=== PATIENT | female | born 1960 | race Caucasian/White ===

== ENCOUNTER 2025-10-02 14:05 | Outpatient (CLI) | payer MEDICARE, MEDICAID, SELFPAY ==
--- NOTE | ~2025-10-02 | CT_ITS ---
EXAM/PROCEDURE: CT soft tissue neck w con HISTORY: E04.2 - Nontoxic multinodular goiter COMPARISON: None available. TECHNIQUE: Contrast-enhanced soft tissue neck CT FINDINGS: The left lobe of the thyroid is markedly enlarged measuring 7.5 x 5.5 x 5.0 cm in the cephalocaudal by transverse by AP dimensions. The trachea is displaced to the right approximately 1.8 cm. The mass extends caudally just past the thoracic inlet into the superiormost portion of the anterior mediastinum. The right lobe of the thyroid has small subcentimeter hypoattenuating nodules but is normal in size. The remainder the visualized portions of the mediastinum chest appear normal. No gross acute process seen. Contrast. Vascular structures are patent. No bulky lymphadenopathy seen. Scattered nonpathologic sized jugulodigastric posterior triangle and submental lymph nodes are present. Complete opacification of the left maxillary sinus with extension of soft tissue attenuation through the left ostiomeatal complex into the medial ethmoid air cells. Diffuse degenerative changes throughout the cervical spine and upper thoracic spine. There is also prominent kyphotic angulation at T2-T3 with approximately 2 mm spondylolisthesis anteriorly of T2 on T3. IMPRESSION: 1. The left lobe of the thyroid measures 7.5 x 5.5 x 5.0 cm, significantly enlarged and displacing the trachea approximately 1.8 cm to the right of midline. 2. Complete opacification of the left maxillary sinus with soft tissue borderline expansile and appearance and protruding through the area of the left ostium medial complex. Correlate with dedicated paranasal sinus CT. 3. Kyphotic angulation at the T2-3 interspace with slight anterolisthesis of T2 on T3. Reviewed, dictated and finalized at location A. CTOR DATABASE IMPRESSION: 1. The left lobe of the thyroid measures 7.5 x 5.5 x 5.0 cm, significantly enla rged and displacing the trachea approximately 1.8 cm to the right of midline. 2. Complete opacification of the left maxillary sinus with soft tissue borderli ne expansile and appearance and protruding through the area of the left ostium medial complex. Correlate with dedicated paranasal sinus CT. 3. Kyphotic angulation at the T2-3 interspace with slight anterolisthesis of T2 on T3.
[2025-10-02 14:37] LABS: Estimated Glomerular Filt Rate > 60
--- OUTSIDE RECORDS SUMMARY | 2025-10-02 21:27 | XMS_ITS ---
Author Organization Unknown Address [address] [place], [place] [id number] Phone Care Team Providers Care Check And Transfer Beader Name Role Phone LACI DUTTA Attending Unavailable LEIDA Beyer Primary Unavailable Social History Type Status Start Date End Date Code Code Syst em Sex Female Hospital Discharge Instructions Should you have any questions prior to discharge, please contact a member of your healthcare team. If you have left the hospital and have any questions, please contact your primary care physician. Reason For Referral No Data Found Plan of Treatment No Data Found Encounters Encounter Diagnosis Start Date Code Code Sys tem Prosthetic heart valve in situ 07/17/2025 [id number] SNOMED-CT Personal Care Team Section Performer Name Performer Role Active Date Inactive Da IFTIKHAR Parks PCP - Primary care physician 2025-05
--- OUTSIDE RECORDS SUMMARY | 2025-10-02 21:27 | XMS_ITS | Clinical Summary ---
Author Organization [facility] Address [address] [place] [address] Care Team Providers Care Buffing Machine Operator Semiautomatic Name Role Phone Clif Bobby M.D. Unavailable [phone] Lito Jimenez M.D. Unavailable [phone] Dariel Leung M.D. Unavailable Unavailable Lynette Karimi M.D. Unavailable [phone] Melva Bates A.P.N. Unavailable [phone] Donnell Perez M.D. Unavailable [phone] Ceasar Caruso M.D. Unavailable [phone] Danni Rodas Unavailable Unavailable Raphael Andrews M.D. Unavailable [phone] Jameson Fisher Primary Care Provider [phone] Jason Garcia M.D. Unavailable [phone] Ronit Mccray Unavailable [phone] Allergies Active Allergy Reactions Criticality Noted Date Comments Bee Venom Hives 01/31/2025 Penicillins Patient does not recall 01/22/2025 Told something happened as a baby Medications insulin aspart (NOVOLOG FLEXPEN) 100 unit/mL insulin pen Inject 5 units under the skin three times daily with meals. 5 Active insulin glargine-yfgn 100 unit/mL insulin vial Inject 14 units under the skin every night at bedtime. 5 Active glucose 4 gram chew tablet Chew 4-8 tablets every hour as needed for hypoglycemia (low blood sugar). 5 Active dextrose 50% soln 50 mL by Intravenous route every hour as needed for other (Blood glucose less than 70 and patient is NPO or not alert). 5 Active ferrous sulfate 325 mg (65 mg iron) tab Take 1 tablet by mouth every other day. Active acetaminophen (TYLENOL) 325 mg tablet Take 2 tablets by mouth every 4 hours as needed for fever or mild pain. Acetaminophen max dose 4 grams per 24 hours. 5 Active insulin lispro (HUMALOG) 100 unit/mL injection Inject 1-2 units under the skin at bedtime as needed for other (Elevated Glucose). 5 Active insulin lispro (HUMALOG) 100 unit/mL injection Inject 1-6 units under the skin three times daily with meals. Active ticagrelor (Brilinta) 90 mg tablet Take 1 tablet by mouth twice daily. Active multivitamin + minerals no iron (adult) 0.4-250 mg-mcg tab tablet Take 1 tablet by mouth daily. Active nicotine (NICODERM) 14 mg/24 hr patch Apply 1 patch to the skin every 24 hours. Active pantoprazole (PROTONIX) 40 mg tablet Take 1 tablet by mouth twice daily. Best if taken before breakfast. Active polyethylene glycol 3350 (MIRALAX) 17 gram oral packet Take 1 packet by mouth daily. Dissolve in 8 ounces of water. 5 Active sennosides-doc usate sodium (TERESA-COLACE) 8.6-50 mg tab Take 2 tablets by mouth twice daily. 5 Active amiodarone (CORDARONE) 200 mg tablet Take 1 tablet by mouth daily. 90 tablet Active atorvastatin (LIPITOR) 80 mg tablet Take 1 tablet by mouth daily. 90 tablet Active losartan (Cozaar) 50 mg tablet Take 1 tablet by mouth daily. 90 tablet Active Active Problems Problem Noted Date Diagnosed Date GIB (gastrointestinal bleeding) 02/17/2025 Severe anemia 01/31/2025 History of left common carotid artery stent plac ement 01/25/2025 Asymptomatic carotid artery stenosis without infarction, right 01/22/2025 Stroke due to stenosis of left carotid artery Social History Tobacco Use Types Packs/Day Years Used Date Smoking Tobacco: Former Cigarettes Smokeless Tobacco: Former Tobacco Cessation:Counseling Given: Not Answered PHQ-2 Answer Date Recorded PHQ-2 Score 0 04/17/2025 Comments Unknown Sex and Gender Information Value Date Recorded Sex Assigned at Female 02/20/2025 2:21 PM CDT Legal Sex Female 4:18 PM CDT Gender Identity Female 02/20/2025 2:21 PM CDT Sexual Orientation Don't know 02/20/2025 2: 21 PM CDT Last Filed Vital Signs Vital Sign Reading Time Taken Comments Blood Pressure 135/61 03/11/2025 3:39 PM CDT Pulse 76 03/11/2025 3:39 PM CDT Temperature 36.6 C (97.9 F) 03/11/2025 3:39 PM CDT Respiratory Rate 19 03/11/2025 3:39 PM CDT Oxygen Saturation 95% 03/11/2025 3:39 PM CDT Inhaled Oxygen Concentration - - Weight 62.1 kg (136 lb 12.8 oz) 04/17/2025 3:49 PM CDT Height 163.8 cm (5' 4.5) 04/17/2025 3:49 PM CDT Body Mass Index 23.12 04/17/2025 3:49 PM CDT Plan of Treatment Upcoming Encounters Date Type Department Care Team (Late st Contact Info) Description 04/16/2026 3:00 PM CDT Appointment [facility] [address] [place] [address] Melva Bates A.P.NMinor [address] [facility] [address] [place] [phone] 04/16/2026 4:00 PM CDT Office Visit [facility] [address] [place] [address] Lito Jimenez M.D. [address] [place] [address] Health Maintenance Due Date Last Done Comments CT Colonography 1959 FIT Test 1959 FIT-DNA Test 1959 FLEXIBLE SIGMOIDOSCOPY 1959 HEPATITIS C SCREENING 1959 MEDICARE ANNUAL WELLNESS VISIT ELIGIBLE 1959 TDAP/TD VACCINE (1 - Tdap) 1970 Pneumococcal Vaccine: 50+ Ye ars (1 of 2 - PCV) 1978 Adult RSV VACCINE (1 - Risk 50-74 years 1-dose series) 2009 LUNG CANCER SCREENING 2009 ZOSTER SERIES VACCINE (1 of 2) 2009 BREAST CANCER SCREENING 10/14/2014 OSTEOPOROSIS SCREENING 10/14/2014 COVID-19 VACCINE (1 - season) 2025 INFLUENZA VACCINE (#1) 2025 DEPRESSION SCREENING 04/17/2026 04/17/2025 COLONOSCOPY 02/05/2035 02/05/2025, 02/05/2025 COLORECTAL CANCER SCREENING 02/05/2035 Medical Devices Implanted Type Area Aging Department Supervisor Device Identifier Shelf Expiration Date Model / Serial / Lot Stent Enroute 9x40mm Peripheral-Tr anscarotid Strl - [id number] Implanted:Qty : 1 on 03/01/2025 by Ceasar Caruso M.D. at [address] BILIARY STENT Right: Common Carotid Artery [facility] 08/13/2026 [id number] / NA / [id number] Insurance MEDICARE [place] Advance Directives * Full Code (Latest Code Status on File) Date Activated Date Inactivated Comments 02/17/2025 8:49 PM 03/11/2025 10:08 PM Care Teams Buffing Machine Operator Semiautomatic Relationship Specialty Start Date [facility] [address] [place] [address] PCP - General Internal Medicine 03/11/25 Jason Garcia M.D. [address] [facility] [address] [address] PCP - Cardiology Cardiology:Electro-Phys iology 03/11/25 Clif Bobby M.D. [address] [place] [address]/[address] [place] [address] Referring Provider Cardiology 02/17/25 Lito Jimenez M.D. [address] [facility]/ [address] [place] [phone] Referring Provider Cardiology 02/18/25 Dariel Leung M.D. [address] [place] [address] Referring Provider 02/18/25 Lynette Karimi M.D. [address] [place] [address] [place] [phone] Referring Provider Cardiology 02/19/25 Melva Bates A.P.N. [address] [place] [phone] Referring Provider Cardiology 02/19/25 Donnell Perez M.D. [address] [place] [address] [place] [phone] Referring Provider Cardiology 02/25/25 Ceasar Caruso M.D. [address] [place] [address] [address] [place] [address] Referring Provider Vascular Surgery 03/01/25 Danni Rodas P.A. Referring Provider Vascular Surgery 03/01/25 Raphael Andrews M.D. [address] [place] [phone] Referring Provider Cardiology 03/08/25 Ronit Mccray [address] [place] [phone] Referring Provider 6/4/25
--- OUTSIDE RECORDS SUMMARY | 2025-10-02 21:27 | XMS_ITS | Clinical Summary ---
Author Organization [facility] Address [address] [facility] [place] [address] Care Team Providers Care Serger Name Role Phone Unavailable Primary Care Provider Unavailabl e Allergies Active Allergy Reactions Criticality Noted Date Comments Penicillins Unknown 01/22/2025 Told something happened as a baby Medications apixaban (ELIQUIS) 5 mg tablet Take 5 mg by mouth 2 times daily. 5 Active aspirin (ECOTRIN EC) 81 mg Tablet, Delayed Release (E.C.) Take 81 mg by mouth daily. Active atorvastatin (LIPITOR) 80 mg tablet Take 80 mg by mouth daily. Active ferrous sulfate 325 mg (65 mg iron) Tablet, Delayed Release (E.C.) Take 325 mg by mouth every other day. 5 Active insulin aspart U-100 (NovoLOG) 100 unit/mL pen syringe INJECT 5 UNITS SUBCUTANEOUSLY THREE TIMES DAILY WITH MEALS Active losartan (COZAAR) 25 mg tablet Take 50 mg by mouth daily. Active NIFEdipine (ADALAT CC) 30 mg Extended Release tablet Take 30 mg by mouth daily. Active amiodarone (CORDARONE) 200 mg tablet Take 200 mg by mouth daily. 5 Active pantoprazole (PROTONIX) 40 mg Tablet, Delayed Release (E.C.) Take 40 mg by mouth. Active guaiFENesin (Mucinex Fast-Max Chest-Congest) 100 mg/5 mL solution Take 10 mL (200 mg) by mouth every 4 hours as needed for Cough. Active Active Problems No known active problems Encounters Date Type Department Care Team Description 10/01/2025 External Device Data ST[facility] ABSTRACTION Provider, Abstract 09/12/2025 4:30 PM CDT Telephone Check Up [facility] Oncology and Hematology [facility] [address] [place] [address] Chau Carson MD 09/04/2025 External Device Data STL ABSTRACTION Provider, Abstract 09/03/2025 External Device Data ST[facility] ABSTRACTION Provider, Abstract 08/20/2025 External Device Data ST[facility] ABSTRACTION Provider, Abstract 08/20/2025 External Device Data ST[facility] ABSTRACTION Provider, Abstract 08/20/2025 External Device Data STL ABSTRACTION Provider, Abstract 08/15/2025 4:00 PM CDT Office Visit [facility] Oncology and Hematology [facility] [address] [place] [address] Chau Carson MD Thyroid nodule (Primary Dx) from Last 3 Months Family History Medical History Relation Name Comments No Known Problems Brother No Known Problems Child 1 No Known Problems Child 2 No Known Problems Child 3 No Known Problems Child 4 Colon Cancer Father Heart Disease Father Diabetes Mother Heart Disease Mother Diabetes Sister Relation Name Status Comments Brother Alive Child 1 Alive Child 2 Alive Child 3 Alive Child 4 Alive Father Mother Sister Alive Social History Tobacco Use Types Packs/Day Years Used Date Smoking Tobacco: Former Cigarettes 0.5 50 0 01/22/1975 - 01/22/2025 Smokeless Tobacco: Never Tobacco Cessation:Counseling Given: Not Answered Alcohol Use Standard Drinks/Week Comments Never 0 (1 standard drink = 0.6 oz pur e alcohol) Comments Unknown Sex and Gender Information Value Date Recorded Sex Assigned at Not on file Legal Sex Female 1:38 PM CDT Gender Identity Not on file Sexual Orientation Not on file Last Filed Vital Signs Vital Sign Reading Time Taken Comments Blood Pressure 148/80 08/15/2025 3:23 PM CDT Pulse 65 08/15/2025 3:20 PM CDT Temperature 36.3 C (97.3 F) 08/15/2025 3:20 PM CDT Respiratory Rate 16 08/15/2025 3:20 PM CDT Oxygen Saturation 97% 08/15/2025 3:20 PM CDT Inhaled Oxygen Concentration - - Weight 63.2 kg (139 lb 6.4 oz) 08/15/2025 3:20 P M CDT Height 167.6 cm (5' 6) 08/15/2025 3:20 PM CDT Body Mass Index 22.5 08/15/2025 3:20 PM CDT Plan of Treatment Health Maintenance Due Date Last Done Comments DTAP/TDAP/TD VACCINES (1 - Tdap) 1978 BREAST CANCER SCREENING 1999 FIT-DNA Q 3 years 2004 FIT/FOBT Q 1 year 2004 Flex Sig/CT Colonography Q 5 years 2004 Lung Cancer Screening 2009 PNEUMOCOCCAL VACCINE 50+ YEARS (1 of 1 - PCV) 07/08/20 09 ZOSTER VACCINE (1 of 2) 2009 OSTEOPOROSIS SCREENING 2024 INFLUENZA VACCINE (#1) 2025 RSV VACCINE (60+ or ) (1 - 1-dose 75+ series) 2034 COLORECTAL SCREENING 02/05/2035 02/05/2025 Colorectal Cancer Screening 02/05/2035 Insurance MEDICARE PART A AND [place] [address]
--- OUTSIDE RECORDS SUMMARY | 2025-10-02 21:27 | XMS_ITS | Encounter Summary ---
Author Organization [facility] Address [address] [place] [address] Care Team Providers Care Aquaculture Farmer Name Role Phone Unavailable Primary Care Provider Unavailabl e Encounter Details Date Type Department Care Team (Late st Contact Info) Description 10/01/2025 External Device Data [facility] ABSTRACTION Provider, Abstract NO ADDRESS ON FILE Social History Tobacco Use Types Packs/Day Years Used Date Smoking Tobacco: Former Cigarettes 0.5 50 0 01/22/1975 - 01/22/2025 Smokeless Tobacco: Never Alcohol Use Standard Drinks/Week Comments Never 0 (1 standard drink = 0.6 oz pur e alcohol) Comments Unknown Sex and Gender Information Value Date Recorded Sex Assigned at Not on file Legal Sex Female 1:38 PM CDT Gender Identity Not on file Sexual Orientation Not on file documented as of this encounter Plan of Treatment Not on file documented as of this encounter Visit Diagnoses Not on filedocumented in this encounter
--- OUTSIDE RECORDS SUMMARY | 2025-10-02 21:27 | XMS_ITS | Clinical Summary ---
Author Organization [facility] Address [address] [place] [address] Care Team Providers Care Women'S Soccer Coach Name Role Phone Jason Garcia MD Unavailable [phone] Ebenezer Philip MD Unavailable Ronit Mccray MD Primary Care Provider [phone] Allergies Active Allergy Reactions Criticality Noted Date Comments Bee Venom Hives 01/31/2025 Penicillins Unknown 01/22/2025 Told something happened as a baby Medications Insulin Aspart FlexPen 100 UNIT/ML Solution Pen-injector Inject 5 Units into the skin 3 (three) times daily before meals. 3 Pen 5 Active pantoprazole EC (PROTONIX) 40 MG tablet Take 1 tablet (40 mg total) by mouth 2 (two) times a day. Active amiodarone (PACERONE) 200 MG tablet Take 1 tablet (200 mg total) by mouth daily. Active apixaban (ELIQUIS) 5 MG tabletIndications :Atrial fibrillation (CMS/HCC HHS/HCC) Take 1 tablet (5 mg total) by mouth 2 (two) times daily. 60 tablet 5 5 Active aspirin EC 81 MG tablet Take 1 tablet (81 mg total) by mouth daily. Active ferrous gluconate (FERGON) 324 (37.5 Fe) MG tablet Take 1 tablet (324 mg total) by mouth daily with breakfast. Active atorvastatin (LIPITOR) 80 MG tablet Take 1 tablet (80 mg total) by mouth daily. Active losartan (COZAAR) 25 MG tablet Take 2 tablets (50 mg total) by mouth daily. Active NIFEdipine ER (ADALAT CC) 30 MG 24 hr tablet Take 1 tablet (30 mg total) by mouth daily. Active Active Problems Problem Noted Date Diagnosed Date Severe anemia 01/31/2025 History of left common carotid artery stent plac ement 01/25/2025 Stroke due to stenosis of left carotid artery Asymptomatic carotid artery stenosis without infarction, right 01/22/2025 Encounters Date Type Department Care Team Description 09/20/2025 Telephone [facility] [address] [place] [address] Ebenezer Philip MD Information 07/10/2025 Results Follow-Up [facility] [address] [place] [address] Jayda Sommers, PRESIDENT AND CHIEF EXECUTIVE OFFICER US CAROTID DUPLEX SANDY from Last 3 Months Family History Medical History Relation Comments Cancer Father Relation Status Comments Father Mother Social History Tobacco Use Types Packs/Day Years Used Date Smoking Tobacco: Former Cigarettes S tarted: 01/22/2025 Smokeless Tobacco: Never Tobacco Cessation:Counseling Given: Not Answered Alcohol Use Standard Drinks/Week Comments Never 0 (1 standard drink = 0.6 oz pur e alcohol) [facility] Utilities Answer Date Recorded In the past 12 months has e Medafor, gas, oil, or water Stance threatened to shut off services in your home? No 01/31/2025 Humiliation, Afraid, Rape, and Kick questionnair e Answer Date Recorded Within the last year, have y ou been afraid of your partner or ex-partner? No 01/31/2025 Within the last year, have y ou been humiliated or emotionally abused in other ways by your partner or ex-partner? No Within the last year, have y ou been kicked, hit, slapped, or otherwise physically hurt by your partner or ex-partner? No 01/31/2025 Within the last year, have y ou been raped or forced to have any kind of sexual activity by your partner or ex-partner? No 01/31/2025 Overall Financial Resource Strain (CARDIA) Answe r Date Recorded How hard is it for you to pa y for the very basics like food, housing, medical care, and heating? Not very hard 01/31/2025 Hunger Vital Sign Answer Date Recorded Within the past 12 months, y ou worried that your food would run out before you got the money to buy more. Never true 02/01/20 25 Within the past 12 months, t he food you bought just didn't last and you didn't have money to get more. Never true 01/31/2025 PRAPARE - Transportation Answer Date Re corded In the past 12 months, has l ack of transportation kept you from medical appointments or from getting medications? No 01/13 In the past 12 months, has l ack of transportation kept you from meetings, work, or from getting things needed for daily living? No 01/31/2025 Housing Stability Vital Sign Answer [facility] Recorded In the last 12 months, was t here a time when you were not able to pay the mortgage or rent on time? No 01/31/2025 In the past 12 months, how m any times have you moved where you were living? 2 01/31/2025 At any time in the past 12 m [facility], were you homeless or living in a intermediate (including now)? No 01/31/2025 Comments No Sex and Gender Information Value Date Recorded Sex Assigned at Female 01/22/2025 12:43 PM CDT Legal Sex Female 12:24 PM CDT Gender Identity Female 01/22/2025 12:43 PM CDT Sexual Orientation Straight 01/22/2025 12 :43 PM CDT Last Filed Vital Signs Vital Sign Reading Time Taken Comments Blood Pressure 156/90 05/30/2025 2:20 PM CDT Pulse 68 05/30/2025 2:20 PM CDT Temperature 36.7 C (98 F) 04/01/2025 12:52 PM CDT Respiratory Rate 16 05/30/2025 2:20 PM CDT Oxygen Saturation 96% 05/30/2025 2:20 PM CDT Inhaled Oxygen Concentration - - Weight 61.7 kg (136 lb) 05/30/2025 2:20 PM CDT Height 167.6 cm (5' 6) 05/30/2025 2:20 PM CDT Body Mass Index 21.95 05/30/2025 2:20 PM CDT Plan of Treatment Upcoming Encounters Date Type Department Care Team (Late st Contact Info) Description 12/02/2025 11:00 AM ASSOCIATE ARTISTIC DIRECTOR Office Visit [facility] [address] [place] [phone] Vinh Rivas, PRESIDENT AND CHIEF EXECUTIVE OFFICER [address] [place] [address] 12/02/2025 11:00 AM ASSOCIATE ARTISTIC DIRECTOR Allied Health/Nurse Visit [facility] [address] [place] [phone] Vinh Rivas, PRESIDENT AND CHIEF EXECUTIVE OFFICER [address], [place] [phone] 12/02/2025 1:00 PM ASSOCIATE ARTISTIC DIRECTOR Appointment [facility] [address] [address] Ebenezer Philip MD [address] [place] [phone] 12/02/2025 2:00 PM ASSOCIATE ARTISTIC DIRECTOR Office Visit [facility] [address] [phone] Ebenezer Philip MD [address] [place] [phone] Health Maintenance Due Date Last Done Comments Kidney Health Evaluation 1959 Diabetes: Retinopathy Eye Exam 1977 Hepatitis C 1977 DTaP, Tdap and Td Vaccines ( 1 - Tdap) 1978 Pneumococcal Vaccine: 50+ Years (1 of 2 - PCV) 1978 Mammogram Screening 1999 Zoster Vaccines (1 of 2) 2009 RSV Immunization or 60+ Years (1 - Risk 60-74 years 1-dose series) 2019 Annual Medicare Wellness Visit 2024 Dexa Scan (General) 2024 PHQ-2 (Physician [place]) 11/14/2024 COVID-19 Vaccine (1 - 2024-2 6 season) 2025 Influenza Adult (#1) 2025 Hemoglobin A1C 08/19/2025 02/17/2025, 01/23/2025 Lipid Panel 02/19/2026 02/19/2025, 02/07/2025, 01/23/2025 Colorectal Cancer Screening Colonoscopy (10 Years) 02/05/2035 02/05/2025, 02/05/2025, 02/04/2025 Hepatitis A Vaccines Aged Out No long er eligible based on patient's age to complete this topic Meningococcal B Vaccine Aged Out No l onger eligible based on patient's age to complete this topic Meningococcal Vaccine Aged Out No willie gina eligible based on patient's age to complete this topic RSV Immunizations Under 20 Months Aged Out No longer eligible b ased on patient's age to complete this topic Goals Goal Patient Goal Type Associated Problems Recent Progress Patient-Stated? Author Patient will return to prior living situation and remain independent in ADLs upon discharge from hospital Lifestyle Yes Angie Christina RN Safety Patient/family will have appropriate support at home upon discharge Lifestyle Yes Angie Christina RN Medical Devices Implanted Type Area Building Rental Manager Device Identifier Shelf Expiration Date Model / Serial / Lot Clip Resolution 360 Deg 2.8mm X 235cm - [id number] Implanted:Qty: 2 on 02/05/2025 by Akil Hammond MD at [facility] Clip Implant [employer]IP 06/29/2026 [id number] [employer] Lux-Dx Ii-02/08/2025 Implanted: 025 by Jason Garcia MD (Quantity not on file) Implantable Loop Recorder [employer] BENY 06/22/2026 [id number] / [id number] / Description:DX: Cryptogenic Stroke Abbot Xact 8-6mm X 40mm Carotid Stent Lt Ica-01/25/2025 Implanted: 025 by Lavelle Alva MD (Quantity not on file) Stent Left: Carotid [employer] 03/13/2027 [id number] / / [id number] Description:MR CONDITIONAL F OR SINGLE AND OVERLAPPING CONFIGURATIONS UP TO 75 MM AT 1.5 T OR 3 T, MAX SPATIAL GRADIENT FIELD OF 3000 GAUSS/CM OR LESS, MAX SLEW RATE 200 T/M/S, MAX WHOLE BODY GLENNA OF 2 W/KG OR LESS, HEAD GLENNA 3.2 W/KG OR LESS Procedures Procedure Name Priority Date/Time Associated Diagnosis Comments LIPID PANEL Routine 02/07/2025 4:46 AM CDT COLONOSCOPY 02/05/2025 10:32 AM CDT HEMOGLOBIN, GLYCOSYLATED Routine 01/23/2025 3:51 AM CDT from Last 3 Months or Most Recently Relevant to Health Maintenance Results * (ABNORMAL) LIPID PANEL (02/07/2025 4:46 AM CDT) CHOLESTEROL 81 MG/DL 02/07/2025 5:[address] [facility] Comment:DESIRABLE: <200 TRIGLYCERIDES 58 MG/DL 02/07/2025 5:[address] [facility] Comment:<150 NORMAL HDL 42(L) >49 MG/DL 02/07/2025 5:[address] [facility] LDL (CALCULATED) 27 MG/DL 02/08/20 5:[address] [facility] Comment:<100 OPTIMAL VLDL CALCULATION 12 MG/DL 02/08/20 5:[address] [facility] Comment:REFERENCE RANGE NOT ESTABLISHED CHOL/HDL RATIO 1.9 02/07/2025 5:[address] [facility] Comment:REFERENCE RANGE NOT ESTABLISHED LDL/HDL 0.7 02/07/2025 5:[address] [facility] Comment:REFERENCE RANGE NOT ESTABLISHED NON HDL CHOLESTEROL 39 MG/DL 02/07/2025 5:[address] [facility] Comment:REFERENCE RANGE NOT ESTABLISHED 02/07/2025 4:46 AM CDT us Paddy Pabon MD LABORATORY Final Resu lt [facility] [address] [place] [address], [phone] * Colonoscopy (02/05/2025 10:32 AM CDT) Akil Hammond MD GI PROCEDURE ORDERABLES Fi nal Result * (ABNORMAL) HEMOGLOBIN, GLYCATED (01/23/2025 3:51 AM CDT) HGB A1C 9.8(H) <5.7 % 01/23/2025 5:[address] [facility] ESTIMATED AVG GLUCOSE 235(H) 74 - 114 MG/DL 01/23/2025 5:[address] [facility] 01/23/2025 3:51 AM CDT Hung Rashid MD LABORATORY Final Result [facility] [address] [place] [address], [phone] from Last 3 Months or Most Recently Relevant to Health Maintenance Insurance MEDICARE MEDICAID Advance Directives * Full Code (Latest Code Status on File) Date Activated Date Inactivated Comments 01/31/2025 10:41 PM 02/17/2025 11:35 AM * Full Code Date Activated Date Inactivated Comments 01/23/2025 8:54 PM 01/27/2025 5:22 PM * Full Code Date Activated Date Inactivated Comments 01/23/2025 8:53 PM 01/23/2025 8:54 PM Care Teams Women'S Soccer Coach Relationship Specialty Start Date End Date Ronit Mccray MD [address] [place] [phone] PCP - General FAMILY PRACTICE 04/01/25 Jason Garcia MD [address] [place] [phone] Consulting Physician CLINICAL CARDIAC ELECTROPHYSIOLOGY 02/13/25 Ebenezer Philip MD [address] [place] [phone] Consulting Physician CARDIOVASCULAR DISEASE 02/18/25
--- OUTSIDE RECORDS SUMMARY | 2025-10-02 21:28 | XMS_ITS ---
Author Organization Unknown Address [address] [place], [place] [phone] Phone Care Team Providers Care Metal Casket Assembler Name Role Phone LACI DUTTA Attending Unavailable [...] Sys tem Prosthetic heart valve in situ 06/14/2025 [id number] SNOMED-CT Personal Care Team Section Performer Name Performer Role Active Date Inactive Da IFTIKHAR Parks PCP - Primary care physician 2025-05
--- OUTSIDE RECORDS SUMMARY | 2025-10-02 21:28 | XMS_ITS ---
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
== END 2025-10-02 14:06 | disposition home or self-care (01) ==
PROVIDERS: PCP Family Medicine; Visit Provider Otolaryngology
DX: E04.2 Nontoxic multinodular goiter (principal); J01.00 Acute maxillary sinusitis, unspecified; J34.89 Other specified disorders of nose and nasal sinuses; M40.03 Postural kyphosis, cervicothoracic region; M43.16 Spondylolisthesis, lumbar region
CPT/HCPCS: 70491; Q9967